=== PATIENT | male | born 1950 | race Caucasian/White ===

== ENCOUNTER → 2022-04-11 | Outpatient (CLI) | payer MEDICARE, OTHER, SELFPAY ==
[2022-04-11 15:20] LABS: Anion Gap 5 (5-15); BUN 22 mg/dL (7-18); BUN/Creat Ratio 21.2 RATIO (10-20); Calcium,Total 8.9 mg/dL (8.5-10.1); Chloride 108 mmol/L (98-107); Cholesterol 141 mg/dL (200); Creatinine, Serum 1.04 mg/dL (0.70-1.30); EST Glomerular Filtration Rate 74 mL/min (>60); Est Glom Filt Rate - Afr Amer 90 mL/min (>60); Glucose 93 mg/dL (74-106); High Density Lipoprotein 70 mg/dL; PSA,Total - Annual Screen 0.32 ng/mL (0.00-4.00); Potassium 4.6 mmol/L (3.5-5.1); Sodium Level 142 mmol/L (136-145); Triglycerides 27 mg/dL; Very Low Density Lipoprotein 5 mg/dL (5-40)
== END | disposition home or self-care (01) ==
LOC: MFPLAB 11:41
PROVIDERS: PCP Family Medicine; Referring Provider Family Medicine; Visit Provider Family Medicine
DX: Z12.5 Encounter for screening for malignant neoplasm of prostate (principal); Z13.1 Encounter for screening for diabetes mellitus; Z13.220 Encounter for screening for lipoid disorders
CPT/HCPCS: 36415; 80048; 80061; 84153; G0103

== ENCOUNTER → 2023-10-18 | Outpatient (CLI) | payer MEDICARE, OTHER, SELFPAY ==
[2023-10-18 15:41] LABS: PSA,Total - Annual Screen 0.32 ng/mL (0.00-4.00)
== END | disposition home or self-care (01) ==
LOC: MFPLAB 11:51
PROVIDERS: PCP Family Medicine; Visit Provider Family Medicine
DX: Z12.5 Encounter for screening for malignant neoplasm of prostate (principal)
CPT/HCPCS: 36415; 84153; G0103

== ENCOUNTER → 2024-03-31 | Outpatient (CLI) | payer MEDICARE, OTHER, SELFPAY ==
--- NOTE | 2024-03-31 12:34 | RAD_ITS ---
PROCEDURE: SHOULDER MIN 2 VIEWS REASON FOR EXAM: Pain. TECHNIQUE: Four view right shoulder series COMPARISON: None. RAD/Shoulder min 2 Views IMPRESSION: [id number] right acromioclavicular joint degenerative changes are seen. Mild inferior acromial spurring is seen. The right glenohumeral joint demonstrates mild degenerative changes, without ap parent joint narrowing. No acute fracture or dislocation is evident. Reading Location: [id number]
== END | disposition home or self-care (01) ==
LOC: MTRAD 12:34
PROVIDERS: PCP Family Medicine; Referring Provider Family Medicine; Visit Provider Family Medicine
DX: M25.511 Pain in right shoulder (principal)
CPT/HCPCS: 73030

== ENCOUNTER 2024-05-04 10:30 | Outpatient (RCR) | payer MEDICARE, OTHER, SELFPAY ==
--- NOTE | 2024-04-03 11:44 | HP.PTEVAL_ITS ---
Patient's Visit Information Visit Information Visit Information: MARY ELLEN OLMEDO is a 73 year old M referred to Physical Therapy by Dr. Sharan Johnson MD with a diagnosis of RIGHT SHOULDER PAIN. Date of Evaluation: 04/03/24 Physical Therapist: Brandan Arroyo PT, Cert MDT, OCS Visit Plan Frequency: 2x /Week Duration: 4 Weeks Plan: PT INTERVENTIONS ROM ,RTC/SCAPULAR STRENGTHENING ,POSTURAL EX'S AND ACTIVITY MODIFICATION Subjective Subjective: This 73 y/o male presents to physical therapy with right shoulder pain. Patient has had shoulder pain many years. Patient seen DR x-rays showed [id number] right acromioclavicular joint degenerative changes are seen.mild inferior acromial spurring is seen.the right glenohumeral joint demons trates mild degenerative changes, without apparent joint narrowing. and recommended PT. No medication. Patient pain located left shoulder global to lateral deltoid.Described pain as ache. No pain at rest. Aggravating lifting ,[place] activities and housework and [employer] work . Alleviating rest. Patient pain affects sleeping. Patient condition affects QOL and function/housework . Patient goals to decrease pain. SOCIAL: VOCATION: [employer] Pain Right Shoulder: Pain Intensity (Out of 10): 6 Pain Intensity Range: 10 Objective Objective: POSTURE: rounded shoulders head forward PALPATION: unremarkable NEURO: denies paresthesia/tingling AROM: shoulder flexion 140 degrees ,abduction in scapular plane 150 degrees ,ER 90 ,IR T11 MMT( peak force) infraspinatus 11.9 ,subscapularis 12.2 ,supraspinatus 13.7 ,deltoid 13.9 PROM: shoulder flexion/abduction WFL CAPSULAR RESTRICTION: mild/mod tight Special Tests R Shoulder Supine Impingement Test - RC Tear: Negative R Shoulder Lift Off Test - Subscapular Tear: Negative R Shoulder Drop Sign - IS Test: Negative R Shoulder Empty Can - SS: Positive R Shoulder Belly Press - SupScap: Negative R Shoulder Neer - Impingement: Positive R Shoulder Schroeder Heri - Impingement: Positive R Shoulder Shrug Sign - OA/Adhesive Capsulitis: Negative Balance/Special Test Scores Quick DASH Score: 27.5000 Goals Goal 1:: I with HEP for shoulder Goal Time Frame: 4-6 Weeks Goal 2:: Patient improve AROM shoulder flexion/abduction by 5-10 degrees to improve [place] activities . Goal Time Frame: 4-6 Weeks Goal 3:: Patient to improve peak force RTC and deltoid by 5 # to improve function Goal Time Frame: 4-6 Weeks Goal 4:: Patient to improve quick dash by 5 points to improve QOL and function Goal Time Frame: 4-6 Weeks Goal 5:: Patient to demonstrate 50% improvement with less pain and improved function Goal Time Frame: 4-6 Weeks Rehabilitation Potential Physical Therapy Diagnosis: This patient has right shoulder pain due to + signs of impingement subacromial with OA with possible tendinopathy with decrease ROM ,and some weakness thus benefit from skilled PT Rehabilitation Potential: Good Anticipated Interventions Patient/Client Instruction: Educate patient on: Condition and Plan of Care For the Purpose of:: To decrease pain, To increase ROM, To improve muscle performance and motor function, To improve ability to perform ADL's, To increase tolerance to activity/condition/position, To improve performance and independence with ADL's, To improve ability of physical actions for home/community/work/leisure, To improve health of tissue, To decrease soft tissue restriction, To reduce risk of recurrence and To improve tolerance to ADL's Therapeutic Exercise to Include: Strength training, Postural training, Flexibilty training, Passive ROM, Active ROM and Scapular Strength/Stabilization Comment: RTC For the Purpose of:: To decrease pain, To increase ROM, To improve muscle performance and motor function, To improve ability to perform ADL's, To increase tolerance to activity/condition/position, To improve ability of physical actions for home/community/work/leisure and To prevent re-injury TENS: Yes IF ES: Yes Cryotherapy (ice pack, ice massage): Yes Thermo therapy (hot pack): Yes Ultrasound (thermal/non thermal): Yes For the Purpose of:: To decrease pain, To increase ROM, To improve health of tissue and To decrease soft tissue restriction Text: Thank you for the opportunity to evaluate your patient. For Medicare and Medicare HMO plans, please review the plan of care and approve it. It will need to be FAXED BACK to us at [phone] for Medicare purposes. For Medicare only, by signing this I certify the plan of care. Please let me know if there are questions or concerns regarding this plan of care. Physician Signature: Date:
--- NOTE | 2024-05-04 10:55 | HP.PTDCSUM ---
Discharge Summary D/C summary: It has been my pleasure to treat MARY ELLEN OLMEDO referred by Dr. Sharan Johnson MD, with the diagnosis of RIGHT SHOULDER PAIN for a total of 7 visit(s). Discharge Date: Please see the following information for a summary of their discharge status. Subjective Subjective: Pain is better Pain Right Shoulder: Pain Intensity (Out of 10): 1 Overall Improvement % Improvement: 40 Objective Objective/Function: POSTURE: rounded shoulders head forward PALPATION: unremarkable NEURO: denies paresthesia/tingling AROM: shoulder flexion 160 degrees ,abduction in scapular plane 165 degrees ,ER 90 ,IR T11 MMT( peak force) infraspinatus 24.9 ,subscapularis 12.2 ,supraspinatus 25.7 ,deltoid 29.3 PROM: shoulder flexion/abduction WFL CAPSULAR RESTRICTION: mild tight Goals Goal 1:: I with HEP for shoulder Goal Progress: Goal Met Goal 2:: Patient improve AROM shoulder flexion/abduction by 5-10 degrees to improve [place] activities . Goal Progress: Goal Met Goal 3:: Patient to improve peak force RTC and deltoid by 5 # to improve function Goal Progress: Goal Met Goal 4:: Patient to improve quick dash by 5 points to improve QOL and function Goal Progress: Goal Met Goal 5:: Patient to demonstrate 50% improvement with less pain and improved function Goal Progress: Goal Met Plan Plan: D/C D/C Information d/c sentence: If there are questions or concerns regarding this patient's physical therapy, please feel free to call me at [phone]. Thank you for the referral of this patient. Sincerely, Brandan Arroyo, PT, Cert MDT, OCS Balance/Gait/Functional tests Balance/Special Test Scores Quick DASH Score: 2.5000 Improvement % Improvement: 40
== END 2024-05-04 19:00 | disposition home or self-care (01) ==
LOC: PT 10:30
PROVIDERS: PCP Family Medicine; Referring Provider Family Medicine; Visit Provider Family Medicine
DX: M25.511 Pain in right shoulder (principal)
CPT/HCPCS: 97110; 97161; 97530

== ENCOUNTER → 2025-01-19 | Outpatient (CLI) | payer MEDICARE, OTHER, SELFPAY ==
[2025-01-19 16:00] LABS: Anion Gap 9 (5-15); BUN 18 mg/dL (4-19); BUN/Creat Ratio 17.3 RATIO (10-20); Calcium,Total 8.8 mg/dL (7.6-11.0); Carbon Dioxide 26.9 mmol/L (21.0-32.0); Chloride 105 mmol/L (98-108); Glucose 100 mg/dL (70-99); PSA,Total - Annual Screen 0.66 ng/mL (0.02-4.00); Potassium 4.3 mmol/L (3.3-5.1)
== END | disposition home or self-care (01) ==
LOC: MTLAB 11:37
PROVIDERS: PCP Family Medicine; Referring Provider Family Medicine; Visit Provider Family Medicine
DX: Z13.1 Encounter for screening for diabetes mellitus (principal); Z12.5 Encounter for screening for malignant neoplasm of prostate
CPT/HCPCS: 36415; 80048; 84153; G0103